=== PATIENT | female | born 1950 | race African-American/Black ===

== ENCOUNTER 2017-03-21 23:56 | Emergency (ER) | payer MEDICARE, OTHER ==
[~2017-03-21 23:56] MED LIST: ASAB PO; HYDROCHLOROT25 MG PO; LISINOPRIL40 MG PO; PLAVIX PO; T PO
== END 2017-03-22 02:59 | disposition home or self-care (01) ==
LOC: ER 23:56
DX: M47.892 Other spondylosis, cervical region (principal); E07.9 Disorder of thyroid, unspecified; F17.200 Nicotine dependence, unspecified, uncomplicated; J44.9 Chronic obstructive pulmonary disease, unspecified; I25.2 Old myocardial infarction; I10 Essential (primary) hypertension; I25.10 Atherosclerotic heart disease of native coronary artery without angina pectoris; I73.9 Peripheral vascular disease, unspecified; Z87.01 Personal history of pneumonia (recurrent); Z79.82 Long term (current) use of aspirin; Z79.899 Other long term (current) drug therapy
CPT/HCPCS: 72125; 96372; 99284; A9270-GY; J2360